=== PATIENT | male | born 1975 | race Caucasian/White ===

== ENCOUNTER → 2021-07-29 08:50 | Outpatient (CLI) | payer OTHER, SELFPAY ==
[2021-07-29 19:36] LABS: SARS-CoV-2 RNA PCR Positive
[2021-07-30 10:52] LABS: Influenza A QL RT-PCR Negative (Negative); Influenza B QL RT-PCR Negative (Negative)
== END ==
PROVIDERS: Visit Provider Internal Medicine
DX: U07.1 COVID-19 (principal)
CPT/HCPCS: 87502; C9803; U0003; U0005

== ENCOUNTER → 2021-09-18 04:59 | Outpatient (CLI) | payer OTHER, SELFPAY ==
[2021-09-18 11:36] LABS: Influenza A QL RT-PCR Negative (Negative); Influenza B QL RT-PCR Negative (Negative); SARS-CoV-2 RNA PCR Negative
== END ==
PROVIDERS: PCP Internal Medicine; Visit Provider Internal Medicine
DX: R68.89 Other general symptoms and signs (principal); Z20.822 Contact with and (suspected) exposure to COVID-19
CPT/HCPCS: 87502; C9803; U0003; U0005